=== PATIENT | female | born 1955 | race Two or more races ===

== ENCOUNTER 2023-10-25 18:02 | Inpatient (IN) | payer OTHER ==
[~2023-10-25] VITALS: Ht 157.5 cm; Wt 71.2 kg
[~2023-10-25 18:02] MED LIST: ANAPROX275 MG; ATENOLOL100 MG; COZAAR100 MG; IBUPROFEN800 MG PO; NEURONTIN300 MG; NEURONTIN600 MG; ORPH100T PO; SYNTHROID150 MCG
[2023-10-25] MEDS ORDERED: FUROSEMIDE20 MG PO (18:19)
[2023-10-25] MEDS ORDERED: LORAZEPAM2 MG PO (18:19)
[2023-10-25] MEDS ORDERED: ADULT LOW DOSE81 M1 PO (18:20)
[2023-10-25] MEDS ORDERED: NIFEDIPINE20 MG PO (18:20)
--- NOTE | 2023-10-25 18:21 | NUR ---
SE RECIBE FEMINA ALERTA Y ORIENTADA X3 EN AMBULANCIA QUIEN REFIERE HINCHAZON, ERITEMA Y DOLOR EN AMBAS EXTREMIDADES INFERIORES. SE MIDEN S/V Y SE UBICA.
[2023-10-25] MEDS ORDERED: CEFTRIAXONE SODIUM 1,000 MG VIAL IV ONE (18:30)
[2023-10-25] MEDS ORDERED: FUROsemide 20 MG/2 ML VIAL IV ONE (18:30)
--- NOTE | 2023-10-25 18:52 | NUR ---
SE ORIENTA PTE SOBRE TX MEDICO EL CUAL REFIERE ENTENDER.SE LE EXTRAEN MUESTRAS BAJO MEDIDAS ASEPTICAS,SE CANALIZA Y SE ADMINISTRAN MEDICAMENTOS MAICOL ORDEN MEDICA.
[2023-10-25 19:10] LABS: HEMATOCRIT 29.3 % (36.0-45.00); MEAN CELL VOLUME 86.6 fL (80.00-100.00); MEAN CORPUSCULAR HEMOGLOBIN 29.5 pg (27.00-32.0); MEAN CORPUSCULAR HGB CONC 34.1 g/dl (32.0-36.0); PLATELET COUNT 468 K/uL (150-450); RED BLOOD COUNT 3.39 M/uL (4.00-6.00)
[2023-10-25 19:18] LABS: ERYTHROCYTE SEDIMENTATION RATE 53 mm/hr
[2023-10-25 19:29] LABS: INR 0.98; PARTIAL THROMBOPLASTIN TIME 34.2 SECONDS (22.0-34.0); PROTHROMBIN TIME 10.3 SECONDS (9.0-11.5)
[2023-10-25 19:50] LABS: ALBUMIN 4.4 gm/dL (3.4-5.0); BILIRUBIN TOTAL 0.49 mg/dL (0.3-1.2); CALCIUM 9.7 mg/dL (8.5-10.1); CREATININE SERUM 2.71 mg/dL (0.55-1.02); GFR 17.5; GLOBULINA 4.5 G/DL (2.4-3.5); POTASSIUM 5.21 mEq/L (3.5-5.1); TOTAL PROTEIN 8.9 gm/dL (6.4-8.2)
[2023-10-25 19:52] LABS: C-REACTIVE PROTEIN 3.8 MG/DL (0.00-0.29)
[2023-10-25] MEDS ORDERED: FAMOTIDINE/PF 20 MG/2 ML VIAL IV SCH (23:26)
[2023-10-25] MEDS ORDERED: GABAPENTIN 100 MG CAPSULE PO SCH (23:27)
[2023-10-26] MEDS ORDERED: SODIUM CL 0.9% 25 ML IV.SOLN. IV STA (05:06)
[2023-10-26 05:27] LABS: ABG pCO2 39.2 mmHg (35-45); BASE EXCESS -7.6 mmol/l; SaO2 98.7 %; Tco2 19.6 mmol/l
[2023-10-26 05:28] LABS: allen test SATISFACTORY; puncture site BRADIAL LEFT
[2023-10-26] MEDS ORDERED: FLUMAZENIL 0.5 MG/5 ML ML IV ONE (05:29)
[2023-10-26 05:30] LABS: ABG PH 7.289 (7.35-7.45)
[2023-10-26 05:31] LABS: BICARBONATE 18.4 mmol/l (23-25)
[2023-10-26 05:32] LABS: o2 28 %
[2023-10-26 05:33] LABS: ABG PO2 140.2 mmHg (80-100)
[2023-10-26] MEDS ORDERED: ASPIRIN 81 MG TABLET.EC PO SCH (09:00)
[2023-10-26] MEDS ORDERED: LOSARTAN POTASSIUM 100 MG TABLET PO SCH (09:00)
[2023-10-26] MEDS ORDERED: FUROsemide 20 MG TABLET PO SCH (09:00)
[2023-10-26] MEDS ORDERED: CEFTRIAXONE SODIUM 2,000 MG VIAL IV SCH (09:00)
[2023-10-26] MEDS ORDERED: LEVOTHYROXINE SODIUM 200 MCG TABLET PO SCH (09:00)
[2023-10-26] MEDS ORDERED: hydrALAZINE HCL 25 MG TABLET PO SCH (09:00)
[2023-10-26] MEDS ORDERED: LEVOTHYROXINE SODIUM 50 MCG TABLET PO SCH (09:00)
[2023-10-26] MEDS ORDERED: ATENOLOL 100 MG TABLET PO SCH (09:00)
[2023-10-27 08:53] LABS: CALCIUM 8.8 mg/dL (8.5-10.1); CREATININE SERUM 2.32 mg/dL (0.55-1.02); GFR 20.94; POTASSIUM 5.73 mEq/L (3.5-5.1)
== END 2023-10-27 16:21 | disposition home or self-care (01) | DRG 603 ==
LOC: ER 18:02 → SEC-K 23:22 → SURH 23:22
PROVIDERS: General Practice; ADMIT Internal Medicine; ATTEND Internal Medicine
DX: L03.116 Cellulitis of left lower limb (principal); L03.115 Cellulitis of right lower limb; I87.2 Venous insufficiency (chronic) (peripheral); N18.9 Chronic kidney disease, unspecified; E87.8 Other disorders of electrolyte and fluid balance, not elsewhere classified